=== PATIENT | female | born 1950 | race African-American/Black ===

== ENCOUNTER 2017-02-06 13:16 | Emergency (ER) | payer OTHER ==
[~2017-02-06 13:16] MED LIST: ENAL20TA81 PO; GEMF600T PO; GLUCTAB PO; LORT7.5T3 PO; PENI500T PO
[2017-02-06 13:18] VITALS: BP 135/73; PULSE 72; RESP 20; TEMP 98; O2SAT 97
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
== END 2017-02-06 14:12 | disposition home or self-care (01) ==
LOC: NEPK 13:16
DX: Z04.1 Encounter for examination and observation following transport accident (principal); V43.52XA Car driver injured in collision with other type car in traffic accident, initial encounter; Y93.89 Activity, other specified; Y92.410 Unspecified street and highway as the place of occurrence of the external cause; Y99.8 Other external cause status
CPT/HCPCS: 99282

== ENCOUNTER 2017-09-30 09:44 | Emergency (ER) | payer OTHER, MEDICAID ==
[~2017-09-30] VITALS: Ht 167.6 cm; Wt 76.0 kg
[2017-09-30 10:00] VITALS: BP 171/79; PULSE 74; RESP 16; TEMP 97.5; O2SAT 98
[2017-09-30] MEDS ORDERED: LANS30CA PO (10:02)
[2017-09-30] MEDS ORDERED: HYDR-3580 PO (10:02)
[2017-09-30] MEDS ORDERED: METF500T PO (10:02)
[2017-09-30] MEDS ORDERED: ENAL10TA PO (10:02)
[2017-09-30] MEDS ORDERED: ROSU1TAB8 PO (10:02)
[2017-09-30] MEDS ORDERED: ACETAMINOPHEN/HYDROcodone 325 MG/7.5 MG TAB PO ONE (10:15)
[2017-09-30 10:43] LABS: AUTOMATED NEUTROPHIL # 4.1 TH/MM3 (1.8-7.7); BASOPHIL # 0.1 TH/MM3 (0-0.2); BASOPHIL % 0.7 % (0.0-2.0); EOSINOPHIL # 0.4 TH/MM3 (0-0.4); EOSINOPHIL % 4.6 % (0.0-4.0); HEMATOCRIT 36.5 % (35.0-46.0); HEMOGLOBIN 12.1 GM/DL (11.6-15.3); LYMPH % 36.7 % (9.0-44.0); LYMPHOCYTE # 2.9 TH/MM3 (1.0-4.8); MEAN CELL VOLUME 87.5 FL (80.0-100.0); MEAN CORPUSCULAR HGB CONC 33.2 % (32.0-36.0); MEAN PLATELET VOLUME 7.8 FL (7.0-11.0); MONO % 5.8 % (0.0-8.0); MONOCYTE # 0.5 TH/MM3 (0-0.9); NEUT % 52.2 % (16.0-70.0); PLATELET COUNT 369 TH/MM3 (150-450); RED BLOOD COUNT 4.18 MIL/MM3 (4.00-5.30); RED CELL DISTRIBUTION WIDTH 15.5 % (11.6-17.2); WHITE BLOOD COUNT 7.9 TH/MM3 (4.0-11.0)
--- NOTE | 2017-09-30 10:54 | RADRPT ---
EXAM DATE/TIME: 09/30/2017 10:36 [place] COMPARISON: No previous studies available for comparison. INDICATIONS : Right upper abdomen pain radiating into right lower chest. MEDICAL HISTORY : None. SURGICAL HISTORY : None. ENCOUNTER: Initial ACUITY: 3 days PAIN SCORE: 8/10 LOCATION: Bilateral chest FINDINGS: A single view of the chest demonstrates the lungs to be symmetrically aerated without evidence of mas s, infiltrate or effusion. The cardiomediastinal contours are unremarkable. Osseous structures are intact. CONCLUSION: No acute disease. Ryan Centeno Jr., MD on September 30, 2017 at 10:51 Board Certified Radiologist. This report was verified electronically.
--- NOTE | 2017-09-30 10:59 | PD ---
HPI Chief Complaint: Flank/Kidney Pain Time Seen by Provider: 09:57 Travel History International Travel<30 days: No Contact w/Intl Traveler<30days: No Traveled to known affect area: No History of Present Illness HPI This is a 67 year old female who presents to the emergency department with 2 days of right sided back pain that radiates under the right breast, constant, severe, not worse with movement, with no associated shortness of breath or chest pain. She denies any fevers or chills. She denies any dysuria, frequency or urgency. She doesn't have any other symptoms. She's never had pain like this before. She denies any injuries. PFSH Past Medical History Arthritis: Yes Cancer: Yes (MELONOMA RIGHT LEG) Cardiovascular Problems: Yes High Cholesterol: Yes Diabetes: Yes Hypertension: Yes Immunizations Current: Yes Menopausal: Yes Social History Alcohol Use: No Tobacco Use: No Substance Use: No Allergies-Medications (Allergen,Severity, Reaction): Coded Allergies: No Known Allergies (Verified Adverse Reaction, Unknown, 09/30/17) Reported Meds & Prescriptions Reported Meds & Active Scripts Active Reported Hydrocodone-Acetaminophen 7.5 Mg-325 Mg Tab 1 Tab PO Q6H PRN Lansoprazole 30 Mg Capdr 30 Mg PO HS Rosuvastatin (Rosuvastatin Calcium) 20 Mg Tab 20 Mg PO DAILY Enalapril (Enalapril Maleate) 10 Mg Tab 10 Mg PO DAILY Metformin (Metformin HCl) 500 Mg Tab 1,000 Mg PO BIDPC Review of Systems Except as stated in HPI: all other systems reviewed are Neg Physical Exam Narrative GENERAL:Well appearing, no acute distress SKIN: Discrete erythematous rash right along the mid axillary line on the right before the right breast HEAD: Atraumatic. Normocephalic. EYES: Pupils equal and round. No injection or drainage. ENT: Moist mucous membranes NECK: Trachea midline. CARDIOVASCULAR: Regular rate and rhythm. No murmur appreciated. RESPIRATORY: Clear to auscultation. Breath sounds equal bilaterally. GASTROINTESTINAL: Abdomen soft, non-tender, nondistended. MUSCULOSKELETAL: Tender to palpation below the right breast along the rib cage and along the right parathoracic rib cage on the back NEUROLOGICAL: Awake and alert. No obvious cranial nerve deficits. Moving all extremities. PSYCHIATRIC: Appropriate mood and affect; insight and judgment normal. Data Data Last Documented VS Vital Signs Date Time Temp Pulse Resp B/P (MAP) Pulse Ox O2 Delivery O2 Flow Rate FiO2 09/30/17 12:44 17 09/30/17 10:00 97.5 74 171/79 (109) 98 Orders Orders Acetamin-Hydrocod 325-7.5 Mg ([place] 7.5 (09/30/17 10:15) Complete Blood Count With Diff (09/30/17 10:08) Comprehensive Metabolic Panel (09/30/17 10:08) Troponin I (09/30/17 10:08) Electrocardiogram (09/30/17 ) Chest, Single Ap (09/30/17 ) Urinalysis - C+S If Indicated (09/30/17 10:08) Sodium Chlor 0.9% 1000 Ml Inj (Ns 1000 M (09/30/17 11:30) Labs Laboratory Tests Test 09/30/17 10:20 09/30/17 11:17 09/30/17 12:30 White Blood Count 7.9 TH/MM3 Red Blood Count 4.18 MIL/MM3 Hemoglobin 12.1 GM/DL Hematocrit 36.5 % Mean Corpuscular Volume 87.5 FL Mean Corpuscular Hemoglobin 29.0 PG Mean Corpuscular Hemoglobin Concent 33.2 % Red Cell Distribution Width 15.5 % Platelet Count 369 TH/MM3 Mean Platelet Volume 7.8 FL Neutrophils (%) (Auto) 52.2 % Lymphocytes (%) (Auto) 36.7 % Monocytes (%) (Auto) 5.8 % Eosinophils (%) (Auto) 4.6 % Basophils (%) (Auto) 0.7 % Neutrophils # (Auto) 4.1 TH/MM3 Lymphocytes # (Auto) 2.9 TH/MM3 Monocytes # (Auto) 0.5 TH/MM3 Eosinophils # (Auto) 0.4 TH/MM3 Basophils # (Auto) 0.1 TH/MM3 CBC Comment DIFF FINAL Differential Comment Blood Urea Nitrogen 13 MG/DL Creatinine 0.82 MG/DL Random Glucose 92 MG/DL Total Protein 7.4 GM/DL Albumin 3.4 GM/DL Calcium Level 8.7 MG/DL Alkaline Phosphatase 60 U/L Aspartate Amino Transf (AST/SGOT) 13 U/L Alanine Aminotransferase (ALT/SGPT) 15 U/L Total Bilirubin 0.1 MG/DL Sodium Level 141 MEQ/L Potassium Level 3.5 MEQ/L Chloride Level 108 MEQ/L Carbon Dioxide Level 26.1 MEQ/L Anion Gap 7 MEQ/L Estimat Glomerular Filtration Rate 84 ML/MIN Troponin I LESS THAN 0.02 NG/ML Urine Color YELLOW Urine Turbidity HAZY Urine pH 5.5 Urine Specific [place] 1.023 Urine Protein TRACE mg/dL Urine Glucose (UA) NEG mg/dL Urine Ketones NEG mg/dL Urine Occult Blood NEG Urine Nitrite NEG Urine Bilirubin NEG Urine Urobilinogen LESS THAN 2.0 MG/DL Urine Leukocyte Esterase TRACE Urine RBC 1 /hpf Urine WBC 2 /hpf Urine Squamous Epithelial Cells 4 /hpf Urine Hyaline Casts 1 /lpf Urine Mucus FEW /lpf Microscopic Urinalysis Comment CULT NOT INDICATED MDM Medical Decision Making Medical Screen Exam Complete: Yes Emergency Medical Condition: Yes Interpretation(s) afebrile, no tachycardia, hypertension no leukocytosis electrolytes within normal limits troponin normal urinalysis: negative for infection Differential Diagnosis Pneumonia, mass, cholelithiasis, cholecystitis, urinary tract infection, pyelonephritis, nephrolithiasis Narrative Course This is a 67-year-old female who presents to the emergency department with right sided pain that started 2 days ago described as an internal pain, not changed with movement. She has normal vital signs. Labs are all reassuring including a normal EKG and troponin. I see a small area that appears to be a rash within the area of this painful. I suspect the patient has herpes zoster. Patient will be treated with antivirals. She was asked to return if she develops new symptoms. Diagnosis Primary Impression: Shingles Qualified Codes: B02.9 - Zoster without complications Patient Instructions: General Instructions Additional Instructions: If you develop severe chest pain, shortness of breath, sweating, lightheadedness , dizziness or difficulty breathing return to the emergency department immediately. Followup with your primary care physician in 2-3 days if your symptoms are not resolved. Med/Other Pt SpecificInfo: Prescription(s) given Scripts Lidocaine Patch 12 HR (Lidocaine Patch 12 HR) 5 % Patch 1 PATCH TOPICAL DAILY Y for PAIN, #1 BOX 0 Refills Remove patch after 12 hours Prov: Rcahel Nelson MD 09/30/17 Valacyclovir (Valacyclovir) 1,000 Mg Tab 1000 MG PO TID for Mgmt Viral Infection, #21 TAB 0 Refills Prov: Rachel Nelson MD 09/30/17 Disposition: 01 DISCHARGE HOME Condition: Stable Rachel Nelson MD Sep 30, 2017 10:59
[2017-09-30] MEDS ORDERED: SODIUM CHLOR 0.9% 1000 ML INJ 1,000 ML IV SCH (11:30)
[2017-09-30 11:58] LABS: ALBUMIN 3.4 GM/DL (3.4-5.0); ALKALINE PHOSPHATASE 60 U/L (45-117); ALT (GPT) 15 U/L (10-53); AST (GOT) 13 U/L (15-37); BICARBONATE 26.1 MEQ/L (21.0-32.0); BLOOD UREA NITROGEN 13 MG/DL (7-18); CALCIUM 8.7 MG/DL (8.5-10.1); CHLORIDE 108 MEQ/L (98-107); CREATININE 0.82 MG/DL (0.50-1.00); GLOMERULAR FILTRATION RATE 84 ML/MIN (>89); GLUCOSE,RANDOM 92 MG/DL (74-106); SODIUM (NA) 141 MEQ/L (136-145); TOTAL BILIRUBIN ADULT 0.1 MG/DL (0.2-1.0); TOTAL PROTEIN 7.4 GM/DL (6.4-8.2); TROPONIN I LESS THAN 0.02 NG/ML (0.02-0.05)
[2017-09-30 12:44] VITALS: RESP 17
[2017-09-30 12:50] LABS: BILIRUBIN, URINE NEG (NEG); BLOOD, URINE NEG (NEG); GLUCOSE,URINE NEG (NEG); HYALINE CAST, URINE 1 /lpf (RARE); KETONE, URINE NEG (NEG); MUCUS URINE FEW /lpf (OCC); NITRITE,URINE NEG (NEG); PH, URINE 5.5 (5.0-8.5); SQUAMOUS EPITHELIAL CELL URINE 4 /hpf (0-5); URINE COLOR YELLOW (YELLW/STRAW); URINE LEUKOCYTE ESTERASE TRACE (NEG)
[2017-09-30] MEDS ORDERED: VALA1TAB PO (12:59)
[2017-09-30] MEDS ORDERED: LIDO1PAD52 TOPICAL (12:59)
--- NOTE | 2017-09-30 22:46 | EKG ---
Date Performed: 09/30/2017 Time Performed: 10:35:44 PTAGE: 67 years EKG: Sinus rhythm INCOMPLETE RIGHT BUNDLE BRANCH BLOCK MODERATE VOLTAGE CRITERIA FOR LVH, CONSIDER NORMAL VARIANT NONS PECIFIC ST & T-WAVE ABNORMALITY BORDERLINE ECG NO PREVIOUS TRACING DOCTOR: Kota Singh Interpretating Date/Time 09/30/2017 22:44:40
== END 2017-09-30 13:14 | disposition home or self-care (01) ==
LOC: NEPD 09:44
DX: B02.9 Zoster without complications (principal); E78.00 Pure hypercholesterolemia, unspecified; E11.9 Type 2 diabetes mellitus without complications; I10 Essential (primary) hypertension; Z79.84 Long term (current) use of oral hypoglycemic drugs; R94.31 Abnormal electrocardiogram [ECG] [EKG]
CPT/HCPCS: 71045; 80053; 81001; 84484; 85025; 93005; 99285; J7030

== ENCOUNTER 2018-02-11 08:50 | Emergency (ER) | payer MEDICAID, OTHER ==
[~2018-02-11] VITALS: Ht 170.2 cm; Wt 85.0 kg
[~2018-02-11 08:50] MED LIST changes: +ENAL10TA PO; -ENAL20TA81 PO; -GEMF600T PO; -GLUCTAB PO; +HYDR-3580 PO; +LANS30CA PO; +LIDO1PAD52 TOPICAL; -LORT7.5T3 PO; +METF500T PO; -PENI500T PO; +ROSU1TAB8 PO; +VALA1TAB PO
[2018-02-11 08:55] VITALS: BP 97/65; PULSE 89; RESP 16; TEMP 98.1; O2SAT 100
[2018-02-11] MEDS ORDERED: SODIUM CHLOR 0.9% 1000 ML INJ 1,000 ML IV ONE (09:17)
[2018-02-11] MEDS ORDERED: PROCHLORPERAZINE INJ 10 MG/2 ML VIAL IV PUSH ONE (09:30)
[2018-02-11] MEDS ORDERED: SODIUM CHLORIDE 0.9% FLUSH 10 ML FLUSH IVF PRN (09:30)
[2018-02-11 09:40] LABS: AUTOMATED NEUTROPHIL # 4.9 TH/MM3 (1.8-7.7); BASOPHIL % 0.4 % (0.0-2.0); EOSINOPHIL # 0.1 TH/MM3 (0-0.4); EOSINOPHIL % 0.8 % (0.0-4.0); HEMATOCRIT 41.6 % (35.0-46.0); HEMOGLOBIN 13.9 GM/DL (11.6-15.3); LYMPH % 35.9 % (9.0-44.0); LYMPHOCYTE # 3.2 TH/MM3 (1.0-4.8); MEAN CELL VOLUME 90.2 FL (80.0-100.0); MEAN CORPUSCULAR HEMOGLOBIN 30.2 PG (27.0-34.0); MEAN CORPUSCULAR HGB CONC 33.5 % (32.0-36.0); MONO % 7.3 % (0.0-8.0); MONOCYTE # 0.6 TH/MM3 (0-0.9); NEUT % 55.6 % (16.0-70.0); PLATELET COUNT 331 TH/MM3 (150-450); RED BLOOD COUNT 4.62 MIL/MM3 (4.00-5.30); RED CELL DISTRIBUTION WIDTH 14.1 % (11.6-17.2); WHITE BLOOD COUNT 8.8 TH/MM3 (4.0-11.0)
--- NOTE | 2018-02-11 09:46 | PD ---
HPI Chief Complaint: GI Complaint Time Seen by Provider: 09:17 Travel History International Travel<30 days: No Contact w/Intl Traveler<30days: No Traveled to known affect area: No History of Present Illness HPI This is a 67-year-old female with a history of hypertension, diabetes mellitus, hyperlipidemia, presents today with complaints of nausea vomiting and slight loose stools. Patient states that she had visitors that had similar symptoms. She fears that they gave this to her. She states that he she has had the symptoms now for 4-5 days. She denies any fevers, chills. She denies any blood in her stool or vomit. She denies any decreased urine output. She states that she feels "miserable. She denies any abdominal pain. PFSH Past Medical History Arthritis: Yes Cancer: Yes (MELONOMA RIGHT LEG) Cardiovascular Problems: Yes High Cholesterol: Yes Diabetes: Yes Patient Takes Glucophage: Yes (02/11/18 0800) Hypertension: Yes Immunizations Current: Yes Influenza Vaccination: Yes ?: Not Menopausal: Yes Social History Alcohol Use: Yes (BEER EVERY NOW AND THEN) Tobacco Use: No Substance Use: No Allergies-Medications (Allergen,Severity, Reaction): Coded Allergies: No Known Allergies (Verified Adverse Reaction, Unknown, 09/30/17) Reported Meds & Prescriptions Reported Meds & Active Scripts Active Zofran Odt (Ondansetron Odt) 4 Mg Tab 4 Mg SL Q6HR PRN Macrobid (Nitrofurantoin Monohydrate Macrocrystals) 100 Mg Capsule 100 Mg PO BID 14 Days Reported Hydrocodone-Acetaminophen 7.5 Mg-325 Mg Tab 1 Tab PO Q6H PRN Lansoprazole 30 Mg Capdr 30 Mg PO HS Rosuvastatin (Rosuvastatin Calcium) 20 Mg Tab 20 Mg PO DAILY Enalapril (Enalapril Maleate) 10 Mg Tab 10 Mg PO DAILY Metformin (Metformin HCl) 500 Mg Tab 1,000 Mg PO BIDPC Review of Systems Except as stated in HPI: all other systems reviewed are Neg General / Constitutional: No: Fever, Chills HENT: Positive: Lightheadedness, No: Headaches, Neck Pain Cardiovascular: No: Chest Pain or Discomfort Respiratory: No: Cough, Shortness of Breath Gastrointestinal: Positive: Nausea, Vomiting, Diarrhea, No: Hematemesis, Hematochezia Genitourinary: No: Frequency, Dysuria, Decreased Urinary Output Musculoskeletal: No: Weakness, Pain Neurologic: No: Weakness, Dizziness, Headache Physical Exam Narrative GENERAL: Well-developed well-nourished female in no acute respiratory distress. SKIN: Focused skin assessment warm/dry. No skin tenting. HEAD: Atraumatic. Normocephalic. EYES: Pupils equal and round. No scleral icterus. No injection or drainage. ENT: No nasal bleeding or discharge. Mucous membranes pink and dry. NECK: Trachea midline. Supple. CARDIOVASCULAR: Regular rate and rhythm. No murmur appreciated. RESPIRATORY: No accessory muscle use. Clear to auscultation. Breath sounds equal bilaterally. GASTROINTESTINAL: Abdomen soft, non-tender, nondistended. No rebound or guarding. MUSCULOSKELETAL: No obvious deformities. No clubbing. No cyanosis. No edema. NEUROLOGICAL: Awake and alert. No obvious cranial nerve deficits. Motor grossly within normal limits. Normal speech. PSYCHIATRIC: Appropriate mood and affect; insight and judgment normal. Data Data Last Documented VS Vital Signs Date Time Temp Pulse Resp B/P (MAP) Pulse Ox O2 Delivery O2 Flow Rate FiO2 02/11/18 12:08 87 24 101/53 (69) 98 Room Air 02/11/18 08:55 98.1 Orders Orders Complete Blood Count With Diff (02/11/18 09:17) Comprehensive Metabolic Panel (02/11/18 09:17) Urinalysis - C+S If Indicated (02/11/18 09:17) Lipase (02/11/18 09:17) Iv Access Insert/Monitor (02/11/18 09:17) Ecg Monitoring (02/11/18 09:17) Oximetry (02/11/18 09:17) Sodium Chlor 0.9% 1000 Ml Inj (Ns 1000 M (02/11/18 09:17) Sodium Chloride 0.9% Flush (Ns Flush) (02/11/18 09:30) Prochlorperazine Inj (Compazine Inj) (02/11/18 09:30) Urine Culture (02/11/18 10:43) Labs Laboratory Tests Test 02/11/18 09:30 02/11/18 10:43 White Blood Count 8.8 TH/MM3 Red Blood Count 4.62 MIL/MM3 Hemoglobin 13.9 GM/DL Hematocrit 41.6 % Mean Corpuscular Volume 90.2 FL Mean Corpuscular Hemoglobin 30.2 PG Mean Corpuscular Hemoglobin Concent 33.5 % Red Cell Distribution Width 14.1 % Platelet Count 331 TH/MM3 Mean Platelet Volume 9.0 FL Neutrophils (%) (Auto) 55.6 % Lymphocytes (%) (Auto) 35.9 % Monocytes (%) (Auto) 7.3 % Eosinophils (%) (Auto) 0.8 % Basophils (%) (Auto) 0.4 % Neutrophils # (Auto) 4.9 TH/MM3 Lymphocytes # (Auto) 3.2 TH/MM3 Monocytes # (Auto) 0.6 TH/MM3 Eosinophils # (Auto) 0.1 TH/MM3 Basophils # (Auto) 0.0 TH/MM3 CBC Comment DIFF FINAL Differential Comment Urine Color YELLOW Urine Turbidity HAZY Urine pH 5.5 Urine Specific [place] 1.022 Urine Protein 30 mg/dL Urine Glucose (UA) NEG mg/dL Urine Ketones 10 mg/dL Urine Occult Blood NEG Urine Nitrite NEG Urine Bilirubin NEG Urine Urobilinogen LESS THAN 2.0 MG/DL Urine Leukocyte Esterase MOD Urine RBC 4 /hpf Urine WBC 17 /hpf Urine Squamous Epithelial Cells 45 /hpf Urine Transitional Epithelial Cells <1 /hpf Urine Renal Epithelial Cells <1 /hpf Urine Amorphous Sediment RARE Urine Bacteria MANY /hpf Urine Hyaline Casts 13 /lpf Urine Mucus FEW /lpf Microscopic Urinalysis Comment CULTURE INDICATED Blood Urea Nitrogen 29 MG/DL Creatinine 1.24 MG/DL Random Glucose 90 MG/DL Total Protein 8.1 GM/DL Albumin 3.3 GM/DL Calcium Level 8.3 MG/DL Alkaline Phosphatase 68 U/L Aspartate Amino Transf (AST/SGOT) 14 U/L Alanine Aminotransferase (ALT/SGPT) 25 U/L Total Bilirubin 0.4 MG/DL Sodium Level 140 MEQ/L Potassium Level 3.1 MEQ/L Chloride Level 107 MEQ/L Carbon Dioxide Level 19.7 MEQ/L Anion Gap 13 MEQ/L Estimat Glomerular Filtration Rate 52 ML/MIN Lipase 103 U/L [facility] Medical Decision Making Medical Screen Exam Complete: Yes Emergency Medical Condition: Yes Differential Diagnosis Gastroenteritis versus diverticulitis versus pancreatitis versus metabolic derangement. Narrative Course 87-year-old female presents with nausea vomiting. Patient had loose stools but no true diarrhea. Patient has had visitors that had GI symptoms. Patient is not febrile. She is not toxic. She has no abdominal pain just the vomiting. She reports no urinary symptoms. Urine analysis does reveal UTI. Patient has mild hypokalemia with potassium of 3.1. This is been replaced orally. Patient also has elevated BUN/creatinine. She has been given 1 L of IV fluid. She will be discharged with prescription for Macrobid and Zofran. She is instructed to increase her fluid intake over the next 2-3 days. She is also instructed to eat potassium rich food. She is encouraged to return if she develops any worsening symptoms. Diagnosis Primary Impression: Nausea & vomiting Additional Impressions: Urinary tract infection Mild hypokalemia Additional Instructions: Increase your potassium rich foods including green leafy vegetables, citrus, bananas. Increase her fluid intake for the next 2-3 days. Return if feeling worse. Med/Other Pt SpecificInfo: Prescription(s) given Scripts Ondansetron Odt (Zofran Odt) 4 Mg Tab 4 MG SL Q6HR Y for Nausea/Vomiting, #10 TAB 0 Refills Prov: Jeff Raines MD 02/11/18 Nitrofurantoin Monohydrate Macrocrystals (Macrobid) 100 Mg Capsule 100 MG PO BID for Infection for 14 Days, #28 CAP 0 Refills Prov: Jeff Raines MD 02/11/18 Disposition: 01 DISCHARGE HOME Condition: Stable Jeff Raines MD Feb 11, 2018 09:46
[2018-02-11 09:57] LABS: ALT (GPT) 25 U/L (10-53)
[2018-02-11 09:59] LABS: ALKALINE PHOSPHATASE 68 U/L (45-117); TOTAL BILIRUBIN ADULT 0.4 MG/DL (0.2-1.0); TOTAL PROTEIN 8.1 GM/DL (6.4-8.2)
[2018-02-11 11:04] VITALS: BP 129/62; PULSE 84; RESP 21; O2SAT 99
[2018-02-11 11:27] LABS: AMORPHOUS SEDIMENT, URINE RARE; BACTERIA, URINE MANY /hpf; BILIRUBIN, URINE NEG (NEG); BLOOD, URINE NEG (NEG); GLUCOSE,URINE NEG (NEG); HYALINE CAST, URINE 13 /lpf (RARE); KETONE, URINE 10 mg/dL (NEG); MUCUS URINE FEW /lpf (OCC); NITRITE,URINE NEG (NEG); PH, URINE 5.5 (5.0-8.5); RENAL EPITHELIAL CELLS <1 /hpf; SQUAMOUS EPITHELIAL CELL URINE 45 /hpf (0-5); TRANSITIONAL EPI CELLS, URINE <1 /hpf; URINE COLOR YELLOW (YELLW/STRAW); URINE LEUKOCYTE ESTERASE MOD (NEG)
[2018-02-11 11:45] LABS: ALBUMIN 3.3 GM/DL (3.4-5.0); BICARBONATE 19.7 MEQ/L (21.0-32.0); BLOOD UREA NITROGEN 29 MG/DL (7-18); CALCIUM 8.3 MG/DL (8.5-10.1); CHLORIDE 107 MEQ/L (98-107); GLUCOSE,RANDOM 90 MG/DL (74-106); SODIUM (NA) 140 MEQ/L (136-145)
[2018-02-11 12:06] LABS: CREATININE 1.24 MG/DL (0.50-1.00); GLOMERULAR FILTRATION RATE 52 ML/MIN (>89)
[2018-02-11 12:07] LABS: AST (GOT) 14 U/L (15-37)
[2018-02-11 12:08] VITALS: BP 101/53; PULSE 87; RESP 24; O2SAT 98
[2018-02-11] MEDS ORDERED: MACR100C2 PO (12:24)
[2018-02-11] MEDS ORDERED: ZOFR4TAB3 SL (12:24)
[2018-02-11] MEDS ORDERED: POTASSIUM CHLORIDE 25 MEQ EFFERVESCENT TAB PO ONE (12:30)
== END 2018-02-11 14:08 | disposition home or self-care (01) ==
LOC: NEPC 08:50
DX: R11.2 Nausea with vomiting, unspecified (principal); N39.0 Urinary tract infection, site not specified; E87.6 Hypokalemia; E11.9 Type 2 diabetes mellitus without complications; E78.00 Pure hypercholesterolemia, unspecified; I10 Essential (primary) hypertension; Z79.84 Long term (current) use of oral hypoglycemic drugs
CPT/HCPCS: 80053; 81001; 83690; 85025; 87086; 96361; 96374; 99284; J0780; J7030